=== PATIENT | male | born 1950 | race Caucasian/White ===

== ENCOUNTER → 2019-07-14 | Outpatient (CLI) | payer MEDICARE, OTHER ==
--- NOTE | 2019-07-14 16:41 | Diagnostic Imaging Report ---
EXAM: Renal Ultrasound INDICATION: ^Cyst of kidney, acquired COMPARISON: None TECHNIQUE: Transverse and longitudinal images of the kidneys and bladder were obtained. FINDINGS: Right Kidney: Length: 13.5 cm Appearance: Normal echogenicity. Collecting system: No hydronephrosis Stones: None Cyst/Mass: Lateral midpole 2.0 x 2.0 x 2.4 cm anechoic simple cyst. Left Kidney: Length: 12.9 cm Appearance: Normal echogenicity. Collecting system: No hydronephrosis Stones: None Cyst/Mass: None Bladder: No mass or stones. Prevoid volume estimate of 319cc. Bilateral ureteral jets seen. The prostate measures 4.0 x 3.1 x 4.4 cm with a volume estimate of 28.6 cc IMPRESSION: Right kidney simple cyst. No hydronephrosis or renal calculi. Signed by: Sriram Garvin MD on 07/14/2019 4:37 PM
== END ==
LOC: US 15:34
PROVIDERS: ATTEND Urology
DX: N28.1 Cyst of kidney, acquired (principal)
CPT/HCPCS: 76770

== ENCOUNTER → 2020-06-30 | Outpatient (CLI) | payer MEDICARE, OTHER ==
[~2020-06-30] MED LIST: FLOMAX0.4 MG PO; FOLIC ACID PO; LOVASTATIN40 MG PO; METHOTREXATE2.5 MG PO; PAROXETINE HCL20 MG PO; TESTOSTERONE INJ
--- NOTE | 2020-06-30 13:53 | Diagnostic Imaging Report ---
Renal ultrasound Comparison: 07/14/2019 Clinical History: Renal cyst Technique: Sonographic evaluation of the kidneys was performed. Multiple images were submitted for interpretation, using a low-frequency curved transducer. Right kidney: The kidney measures 12.5 x 5.0 x 5.2 cm. The cortical echogenicity is within normal limits. The cortex measures 1.7 cm. There is no evidence of a focal mass. There is no evidence of hydronephrosis. There is no evidence of a shadowing stone. There is ultrasonographic evidence of a simple midpole cortical renal 2.1 x 2.0 x 1.7 cm cyst. There is no evidence of a perinephric fluid collection. Flow is visualized to the right kidney. Left kidney: The kidney measures 12.7 x 5.8 x 5.5 cm. The cortical echogenicity is within normal limits. The cortex measures 1.8 cm. There is no evidence of a focal mass. There is no evidence of hydronephrosis. There is no evidence of a shadowing stone. There is no evidence of a cyst. There is no evidence of a perinephric fluid collection. Flow is visualized to the left kidney. Survey images of the bladder demonstrate no abnormality. Prostate measures 2.6 x 3.0 x 3.7 cm with a volume of 14.9 cc which is normal. Impression: Bosniak class I right renal cyst. Stable. Follow-up imaging not needed. Signed by: Jarred Fregoso MD on 06/30/2020 1:50 PM
== END ==
LOC: US 12:51
PROVIDERS: ATTEND Urology
DX: N28.1 Cyst of kidney, acquired (principal)
CPT/HCPCS: 76770

== ENCOUNTER → 2020-09-06 | Day surgery (SDC) | payer MEDICARE, OTHER ==
[2020-09-01 15:29] LABS: BASOPHILS % 0.4 % (0.0-1.0); EOSINOPHILS # (AUTO) 0.2 (0.0-0.4); EOSINOPHILS % 2.7 % (0.0-6.0); HEMATOCRIT 47.3 % (38.2-49.6); HEMOGLOBIN 15.6 g/dL (14.0-18.0); LYMPHOCYTES # (AUTO) 1.9 (1.0-3.2); LYMPHOCYTES % 25.8 % (18.0-39.1); MEAN CORPUSCULAR HEMOGLOBIN 31.1 pg (28-32); MEAN CORPUSCULAR VOLUME 94.2 fL (81-99); MONOCYTES # (AUTO) 0.8 (0.2-0.8); MONOCYTES % 11.2 % (4.4-11.3); NEUTROPHILS # (AUTO) 4.4 (2.1-6.9); NEUTROPHILS % 59.5 % (38.7-80.0); PLATELET COUNT 243 x10e3/uL (140-360); RED BLOOD COUNT 5.02 x10e6/uL (4.3-5.7)
--- NOTE | 2020-09-01 16:17 | Diagnostic Imaging Report ---
Exam: CHEST 2 VIEWS Date: 09/01/2020 4:13 PM INDICATION: ^[id number] ^1540 ^PRE OP Comparison: 11/17/2019 FINDINGS: Lines/Tubes:None Lungs:The lungs are well inflated. No focal consolidation or pulmonary edema. Pleura:No pleural effusion. No pneumothorax. Heart/Mediastinum:The cardiomediastinal silhouette is normal in size and contour. Bones/Soft Tissues: No acute osseous abnormality. Stable advanced multilevel degenerative changes with mild anterior wedging of the mid to lower thoracic vertebral bodies. Upper abdomen: Unremarkable. IMPRESSION: Stable exam without acute intrathoracic process. Signed by: Bryce Cho MD on 09/01/2020 4:13 PM
[~2020-09-06] MED LIST changes: +ATIVAN1 MG PO; +ATROPINE SULFATE 1 MG/ML VIAL ONE; +BUPIVACAINE HCL 0.5% INJ 30 ML VIAL INJ ONE; +CEFAZOLIN SOD 1 GM/NS 50ML 100 ML IV ONE; +CELEBREX100 MG PO; +DESFLURANE 240 ML BTL INH ONE; +DEXAMETHASONE SOD PHOS INJ 4 MG/ML VIAL ONE; +EPHEDRINE SULFATE INJ 50 MG/ML VIAL ONE; +FENTANYL CITRATE/PF 100MCG/2 ML INJ ONE; +GLYCOPYRROLATE INJ 0.2 MG/ML VIAL ONE; +HYDROCODONE/APAP 7.5MG-325MG 1 EA TAB ONE; +KETOROLAC TROMETHAMINE 30 MG/ML VIAL ONE; +LIDOCAINE HCL 1% LOCAL INJ 20 ML VIAL ONE; +LIDOCAINE HCL 2% JELLY 5 ML TUBE ONE; +LIDOCAINE HCL 2% LOCAL INJ 5 ML SDV VIAL INJ ONE; +MIDAZOLAM HCL 2 MG/2 ML VIAL ONE; +ONDANSETRON HCL INJ 2MG/ML 2ML 2 MG/ML VIAL ONE; +PROPOFOL IV EMULSION 10 MG/ML 20 ML VIAL ONE; +SEVOFLURANE INHAL SOLN 250 ML PEN BTL ONE
[2020-09-06 15:40] VITALS: BP 139/81
--- NOTE | 2020-09-06 18:55 | Operative Report ---
DATE OF PROCEDURE: 09/06/2020 SURGEON: Nidhi Bansal MD PRE-PROCEDURAL DIAGNOSES: Right thumb CMC arthritis, STT arthritis. POST-PROCEDURAL DIAGNOSES: Right thumb CMC arthritis, STT arthritis. PROCEDURES PERFORMED: Right thumb trapeziectomy, partial trapezoid excision, and TightRope suspensionplasty. SVP DIGITAL AD SALES: None. ANESTHESIA: General. COMPLICATIONS: None. SPECIMENS: None. ESTIMATED BLOOD LOSS: Minimal. 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 His symptoms have been refractory to nonoperative management. Benefits and risks of surgery were discussed with the patient including bleeding, infection, damage to vascular structures, need for additional surgery, persistent pain, stiffness, possible loss of life or limb, recurrence, need for additional surgery and knowing this, he elected to proceed. DESCRIPTION OF PROCEDURE: The patient was identified in the preoperative holding area and the above-noted site was marked. He was then transported to the operating room, where the above-noted anesthesia was induced. He was placed supine on the table with the right upper extremity onto the hand table. The right upper extremity was then prepped and draped in usual sterile fashion. Preoperative antibiotics were dosed. All were in agreement to began. An Esmarch was used to exsanguinate the limb and the tourniquet was raised to 200 mmHg. An approximately 3 cm incision was made, centered over the CMC joint. We incised the skin and subcutaneous tissue taking care to achieve hemostasis as well as protect any superficial branch of the radial nerve. The 1st dorsal compartment tendons were encountered and the 1st dorsal compartment was released on the dorsal edge. The 1st dorsal compartment tendons were then retracted at the side. The radial artery was then carefully identified and retracted out with a blunt retractor. Full-thickness capsular flaps were then created down to bone, exposing the CMC joint using Bovie electrocautery. The trapezium was then exposed in its entirety in one piece using the corkscrew for assistance. Once this was performed, the FCR tendon was noted that present at the base without any damage. The STT joint was evaluated and was noted to be significant advanced changes along the STT joint and the partial 3rd of the trapezoid was excised. This was done with an osteotome. Copious irrigation was performed. Multiplanar fluoroscopic views were done before in this patient to identify pathology as well as to ensure complete excision of the trapezium and no remainder of any bony fragments. Once this was performed, we then turned our attention to our suspensionplasty. The guide K-wire for the TightRope, Mini TightRope was then introduced along the dorsal radial aspect of the thumb metacarpal base parallel to the articular surface and then advanced under direct supervision as well as with multiplanar fluoroscopic views through the base of 2nd metacarpal and exited along the ulnar aspect. An incision was made along the ulnar aspect of the 2nd metacarpal and the fascia was incised over the 2nd dorsal interosseous. An elevator was used to elevate this fascia and the K-wire was then oscillated out under direct visualization. Once this was performed, we then passed the TightRope through the K-wire and then used this to pull the TightRope through our tunnel. The thumb was then held and traction reduced and the TightRope was then provisionally tied. Multiplanar fluoroscopic views were then performed to ensure that we had the correct position of the thumb as well as adequate traction and lutheran of . Once this was performed and we were satisfied with this, we then proceeded to place multiple suture and then cut the tails. This was then tucked under the fascia of the 1st and 2nd dorsal interosseous and then closed with 3-0 Vicryl. A 4-0 Prolene was used to close this incision. Copious irrigation was then performed to the right thumb CMC site. Gel-Foam was then placed into the site and the capsule was closed with 3-0 Vicryl. A 3-0 Prolene was then used to close the skin. A soft sterile dressing was then placed followed by a thumb spica splint. Prior to this, local was infiltrated around the incisional site. The tourniquet was let down and the fingers pinked up nicely. The patient was then awoken from anesthesia and taken to PACU in stable condition. POSTOPERATIVE PLAN: The patient will be discharged home today. We will see him back in clinic in 10 to 14 days for initiation of OT. MD WINNIE Ahn/MODL /[id number]
== END | disposition home or self-care (01) ==
LOC: OR 10:27
PROVIDERS: ATTEND Orthopaedic Surgery
DX: M18.11 Unilateral primary osteoarthritis of first carpometacarpal joint, right hand (principal); M18.12 Unilateral primary osteoarthritis of first carpometacarpal joint, left hand; M19.041 Primary osteoarthritis, right hand; F41.9 Anxiety disorder, unspecified; R00.1 Bradycardia, unspecified; Z88.6 Allergy status to analgesic agent; Z01.810 Encounter for preprocedural cardiovascular examination; Z01.812 Encounter for preprocedural laboratory examination; Z01.818 Encounter for other preprocedural examination; Z11.59 Encounter for screening for other viral diseases
CPT/HCPCS: 25447; 36415; 71046; 85025; 93005; J0461; J0690; J1100; J1885; J2001 ×3; J2250; J2405; J2704; J3010; U0002